=== PATIENT | female | born 1970 | race Caucasian/White ===

== ENCOUNTER 2020-06-07 01:20 | Observation (INO) ==
[2020-06-07] MEDS ORDERED: HYDROmorphone HCL 1 MG/ML DISP.SYRIN IV ONE ×4 (01:48→04:19)
[2020-06-07] MEDS ORDERED: NORMAL SALINE 1,000 ML IV ONE ×2 (01:48→12:37)
[2020-06-07] MEDS ORDERED: ONDANSETRON HCL/PF 2 MG/ML VIAL IV ONE ×4 (01:48→15:18)
--- NOTE | 2020-06-07 01:55 | ERNOTE ---
<Vicente Johnson - Last Filed: 06/07/20 03:40> Abdominal HPI - Narrative Date of Service: 06/07/20 - General Chief Complaint: Abdominal Pain Time Seen by Provider: 06/07/20 01:22 Source: patient Exam Limitations: no limitations - Immun/Allergies/Home Medications Immunizatons: IMMUNIZATION HX Immunizations Up to Date Yes History of Influenza Vaccine No Hx Pneumococcal Vaccination No Allergies/Adverse Reactions: Allergies amoxicillin trihydrate [From Augmentin] Allergy (Severe, Verified 06/07/20 01:25) Diarrhea potassium clavulanate [From Augmentin] Allergy (Severe, Verified 06/07/20 01:25) Diarrhea Sulfa (Sulfonamide Antibiotics) Allergy (Intermediate, Verified 06/07/20 01:25) Hives, tongue swelling chlorhexidine Allergy (Mild, Verified 06/07/20 01:25) Hives erythromycin base [Erythromycin Base] Allergy (Mild, Verified 06/07/20 01:25) Rash Home Medications: HOME MEDICATIONS Citalopram Hydrobromide [Celexa] 40 mg PO DAILY 06/20/13 [Last Taken 09/14/13] Acetaminophen [Tylenol] 1,000 mg PO PRN PRN 12/12/14 [Last Taken Unknown] Digoxin [Lanoxin] 0.125 mg PO DAILY 12/12/14 [Last Taken 12/28/14] Lysine HCl [l-Lysine] 1,000 mg PO DAILY 12/12/14 [Last Taken Unknown] Metoprolol Succinate [Toprol Xl] 12.5 mg PO DAILY 12/12/14 [Last Taken Unknown] Multivitamin [Multi Vitamin Daily] 1 ea PO DAILY 12/12/14 [Last Taken Unknown] Warfarin Sodium [Coumadin] 4 mg PO [id number] 12/12/14 [Last Taken 12/21/14] Zolpidem Tartrate 10 mg PO HS 12/12/14 [Last Taken Unknown] traMADol HCL [Ultram] 50 mg PO TID 12/12/14 [Last Taken Unknown] gabapentin 300 mg capsule 600 mg PO TID cap 09/15/18 [Last Taken Unknown] Melatonin 10 mg PO HS 10/06/18 [Last Taken Unknown] Warfarin Sodium [Coumadin] 2 mg PO MOTH 10/06/18 [Last Taken Unknown] busPIRone HCL [Buspar] 10 mg PO BID 10/06/18 [Last Taken Unknown] rabeprazole 20 mg tablet,delayed release 20 mg PO DAILY 06/19/19 [Last Taken Unknown] - History of Present Illness Narrative: 50-year-old female with out to dinner tonight and upon arrival at home while she was sitting at the table developed right upper quadrant pain and vomiting spreading across her chest and abdomen she came in very excited anxious and rather disagreeable was giving staff a hard time would not sit down on the stretcher for the examination describes the pain was 8 out of 10 and she is also burping she denies any gallbladder symptoms in the past that she does have a history of GERD Date (Duration): 06/07/20 Time (Timing): 01:52 Timing: constant Quality: moderate Activities at Onset: rest Modifying Factors - (Improves): Present: other - Nothing Associated Symptoms: Present: nausea, vomiting, shortness of breath Prior Abdominal Problems: Present: none Review of Systems - Review of Systems Constitutional: Present: no symptoms reported EYE: Present: no symptoms reported ENT: Present: no symptoms reported Respiratory: Present: no symptoms reported Cardiology: Present: no symptoms reported Gastrointestinal/Abdominal: Present: no symptoms reported, nausea, vomiting, abdominal pain Genitourinary: Present: no symptoms reported Musculoskeletal: Present: no symptoms reported Skin: Present: no symptoms reported Neurological: Present: no symptoms reported Endocrine: Present: no symptoms reported Hematologic/Lymphatic: Present: no symptoms reported Psych: Present: anxiety All Other Systems: All systems neg except as marked Medical History (Last Reviewed 06/07/20 @ 01:53 by Vicente Johnson MD) Pulmonary embolism Onset Date: 2007 2000, 2003, 2007. on [employer] Coumadin therapy. Anemia Onset Date: Unknown Carpal tunnel syndrome Onset Date: Unknown Chronic neck pain Onset Date: Unknown Coagulation defect Onset Date: Unknown Depression Onset Date: 01/27/13 GERD (gastroesophageal reflux disease) Onset Date: Unknown Hypothyroidism Onset Date: Unknown Sinus tachycardia Onset Date: Unknown Surgical History: Surgical History (Last Reviewed 06/07/20 @ 01:53 by Vicente Johnson MD) H/O dilation and curettage Onset Date: 07/1998 H/O neck surgery Onset Date: 07/[address] South H/O tubal ligation Onset Date: 03/2008 H/O: hysterectomy Onset Date: 01/2011 History of esophagogastroduodenoscopy (EGD) Onset Date: 09/13/13 Bagan- clotest negative. Mild superficial chronic inflammation. Destruction of fundic polyp History of tonsillectomy Onset Date: 1969 Normal colonoscopy Onset Date: 09/13/13 Normal recheck in 10 years Rectocele Onset Date: 01/2011 Family History: Family History (Last Reviewed 06/07/20 @ 01:24 by Ema Hicks RN) Mother Diabetes Bipolar disorder Clotting disorder Social History: (Last Reviewed 06/07/20 @ 01:25 by Ema Hicks RN) Tobacco: Smoking Status: Never smoker Alcohol: alcohol intake: never Substance Use: substance use type: does not use Physical Exam - Physical Exam General Appearance: Present: wd/wn, alert, moderate distress, severe distress, anxious Head Exam: Present: normal inspection Eye Exam: Normal inspection: bilateral, PERRL: bilateral, EOMI: bilateral Ears, Nose, Throat: Present: normal ENT inspection Neck: Present: normal inspection Respiratory: Present: no respiratory distress Cardiovascular/Chest: Present: regular rate, rhythm Gastrointestinal/Abdominal: Present: soft, tenderness, abnormal bowel sounds, guarding, Monge sign. Absent: nontender, nondistended Progress - Results and Orders Patient's Lab Results:: I have reviewed the patient's lab results. Results and Orders: Laboratory Tests 06/07/20 01:59 WBC 10.7 H RBC 4.76 Hgb 13.8 Hct 43.1 MCV 90.5 MCH 29.0 MCHC 32.0 RDW 13.0 Plt Count 155 Immature Gran % (Auto) 0.30 Immature Gran # (Auto) 0.03 Neutrophils % 65.8 Lymphocytes % 26.5 Laboratory Tests 06/07/20 06/07/20 01:59 01:59 PT 17.5 H INR (Anticoag Therapy) 1.81 H Sodium 140 Plasma Sodium 140 Potassium 3.5 Chloride 102 Carbon Dioxide 28.0 Anion Gap 13.5 BUN 11 Creatinine 0.97 Est GFR (Non-Af Amer) 64 BUN/Creatinine Ratio 11.3 Random Glucose 126 H Calcium 9.4 Calcium Adj for Albumin 9.2 Total Bilirubin 0.4 AST 33 ALT 19 Alkaline Phosphatase 100 Total Protein 7.3 Albumin 3.8 Amylase 57 Lipase 176 Laboratory Tests 06/07/20 02:30 D-Dimer 0.24 - Vital Signs Patient's Vital Signs:: I have reviewed the patient's vital signs. Vital Signs: Vital Signs 06/07/20 01:41 Temperature 36.8 C Pulse Rate 74 Respiratory Rate 16 Blood Pressure 135/81 O2 Sat by Pulse Oximetry 100 - EKG EKG #1 EKG: NSR EKG read: Interp. by ia EKG Comments: EKG shows a sinus rhythm with a heart rate of nonspecific T wave no acute change from 06/28/2015 - X-Ray X-Ray #1 X-Ray: chest Interpretation: Interp. by ia X-ray Comments: Shows no acute changes from 2015 - CT/Ultrasound CT/Ultrasound Narrative: Findings suggestive of early to developing acute cholecystitis there is cholelithiasis present biliary ductal dilatation measuring 9.9 mm gross choledochal cholelithiasis Dr. Carrasco was consulted but will not be in town as of 7:00 this morning to take care of the patient we are trying [facility] for transfer - Progress/Reassessment Chief Complaint: Abdominal Pain Plan - Plan Plan: Patient has acute cholecystitis is trying to transfer the patient to [facility] since there is no surgical facility here at [facility] was unable to handle patient necessity for MRCP called [facility] spoke to who will call us back once we can find a direct admission bed and we will continue transfer Departure Clinical Impression: Choledocholithiasis Pancreatitis Qualifiers: Chronicity: acute Pancreatitis type: unspecified pancreatitis type Acute pancreatitis complication: no infection or necrosis Qualified Code(s): K85.90 - Acute pancreatitis without necrosis or infection, unspecified - Departure Disposition: Short Term Hospital Inpatient Condition: Stable <Vicente Del Castillo - Last Filed: 06/07/20 15:46> Abdominal HPI - Immun/Allergies/Home Medications Immunizatons: IMMUNIZATION HX Immunizations Up to Date Yes History of Influenza Vaccine No Hx Pneumococcal Vaccination No Medical History (Last Reviewed 06/07/20 @ 01:53 by Vicente Johnson MD) Pulmonary embolism Onset Date: 2007 2000, 2003, 2007. on detention Coumadin therapy. Anemia Onset Date: Unknown Carpal tunnel syndrome Onset Date: Unknown Chronic neck pain Onset Date: Unknown Coagulation defect Onset Date: Unknown Depression Onset Date: 01/27/13 GERD (gastroesophageal reflux disease) Onset Date: Unknown Hypothyroidism Onset Date: Unknown Sinus tachycardia Onset Date: Unknown Surgical History: Surgical History (Last Reviewed 06/07/20 @ 01:53 by Vicente Johnson MD) H/O dilation and curettage Onset Date: 07/1998 H/O neck surgery Onset Date: 07/[address] South H/O tubal ligation Onset Date: 03/2008 H/O: hysterectomy Onset Date: 01/2011 History of esophagogastroduodenoscopy (EGD) Onset Date: 09/13/13 Bagan- clotest negative. Mild superficial chronic inflammation. Destruction of fundic polyp History of tonsillectomy Onset Date: 1969 Normal colonoscopy Onset Date: 09/13/13 Normal recheck in 10 years Rectocele Onset Date: 01/2011 Family History: Family History (Last Reviewed 06/07/20 @ 01:24 by Ema Hicks RN) Mother Diabetes Bipolar disorder Clotting disorder Social History: (Last Reviewed 06/07/20 @ 01:25 by Ema Hicks RN) Tobacco: Smoking Status: Never smoker Alcohol: alcohol intake: never Substance Use: substance use type: does not use Progress - Results and Orders Results and Orders: Laboratory Tests 06/07/20 08:58 WBC 9.1 RBC 4.23 Hgb 12.4 L Hct 39.0 MCV 92.2 MCH 29.3 Plt Count 142 L Neutrophils % 71.3 Lymphocytes % 20.6 Neutrophils # 6.5 H Laboratory Tests 06/07/20 08:58 Sodium 139 Plasma Sodium 139 Potassium 4.1 Chloride 104 Carbon Dioxide 28.4 Anion Gap 10.7 BUN 11 Creatinine 0.81 Est GFR (Non-Af Amer) 79 D BUN/Creatinine Ratio 13.6 Random Glucose 108 Calcium 8.4 Calcium Adj for Albumin 8.8 Total Bilirubin 0.4 AST 315 H ALT 244 H Alkaline Phosphatase 111 Total Protein 6.4 Albumin 3.1 L Laboratory Tests 06/07/20 08:55 Amylase 247 H Lipase 2280 H - Vital Signs Vital Signs: Vital Signs 06/07/20 01:41 06/07/20 02:04 06/07/20 02:30 Temperature 36.8 C Pulse Rate 74 95 93 Respiratory Rate 16 16 18 Blood Pressure 135/81 137/72 122/80 O2 Sat by Pulse Oximetry 100 96 93 06/07/20 03:10 06/07/20 03:40 06/07/20 04:09 Temperature Pulse Rate 92 88 86 Respiratory Rate 15 11 L 23 H Blood Pressure 122/70 125/69 129/75 O2 Sat by Pulse Oximetry 94 95 95 06/07/20 05:00 Temperature 36.5 C Pulse Rate 83 Respiratory Rate 12 Blood Pressure 125/69 O2 Sat by Pulse Oximetry 94 - Progress/Reassessment Progress:: Improved - Transfer of Care Expected Disposition: Admit Additional Notes: Patient discussed with Dr. Bañuelos. He was initially reluctant to accept the patient in admission. He did request an MRCP prior to excepting the patient. I explained to him we do not do MRCP is here in the ER, but felt with her labs trending down that concern for the choledocholithiasis was minimal at this time. There is no general surgery support here so I do understand his reluctance but Dr. Bañuelos was agreeable to admit the patient and would consider further evaluation with an MRCP if he felt necessary. Plan - Plan Plan: Discussed with the patient that [facility] is unable to accept the patient in transfer at this time. Issues of possible interventions with the necessary ERCP were discussed with the patient which limits what centers might be willing to accept the patient in transfer. Explained to her 1 of the options might be to repeat labs to see how they are trending and see if this is still an emergent situation or if this is something that could be delayed as far as definitive treatment. Patient is willing to at least repeat labs at this time and we will reassess his situation after we get the repeat labs. Patient does state that that the Toradol seems to be helping her pain more than the Dilaudid. Patient with increased LFTs which would be concerning then for either blockage of the hepatic duct versus an acute hepatitis. Bilirubin remains normal. There is improvement of the white count. Question remains whether this is GB issue vs hepatitis vs stone in duct, though normal bilirubin would go against this cause. Will check an amylase and lipase for completeness. If these are normal consider discharging patient with outpatient follow-up. Patient's amylase and lipase are elevated so there would be concern for some possible obstructive process. Because [facility] has no beds available will contact [facility] for possible transfer. Multiple facilities were contacted in regards to transfer of the patient for possible ERCP. In the meantime a repeat of her lipase and LFTs did show decline in these numbers. Because of this I feel that any stone that she might of had blocking her common bile duct is most likely past as her pain symptoms have also improved even though they still are present. Discussed with the patient and her options of admission here for continued pain control and IV fluids versus discharge with patient managing at home and possibly following up outpatient or returning to the ER should her symptoms worsen up in [place] which is where they are from. Patient and were not happy with these options and question as to why the plan of care had changed over the course of last 12 hours. An hour and 15 minutes was spent [id number] with the patient and her explaining initial findings, intermediate findings and present findings on her labs. Patient kept focusing on her gallbladder and need for surgery for this, while I tried to explain to her that her gallbladder was not the immediate issue it was concern for choledocholithiasis that has now passed. Labs were presented to the patient and her on the computer screen with the detailed descriptions of what that meant and why I felt that patient mainly now has a pancreatitis causing her pain that continued IV fluids and n.p.o. and pain control here in our hospital would be appropriate. Again after an hour and 15 minutes of continued discussion and at this point with the help of patient's patient was willing to come into the hospital for further treatment. I do not believe she is still fully understands why the initial plan no longer needed to be initiated though I tried my best to explain it in 4 different ways.
[2020-06-07 02:05] LABS: Hematocrit 43.1 % (37.0-47.0); Hemoglobin 13.8 gm/dL (12.5-16.0); Mean Cell Volume 90.5 fl (78-100); Mean Platelet Volume 8.6 fl (8-12.5); Neutrophil # 7.1 K/mm3 (1.3-6.0); Neutrophil % 65.8 % (42-75.0); Platelet Count 155 K/mm3 (150-450); Red Blood Count 4.76 M/mm3 (4.2-5.4); White Blood Count 10.7 K/mm3 (4.0-10.5)
[2020-06-07 02:16] LABS: BUN/Creatinine Ratio 11.3 (9.0-21.6); Prothrombin Time (Patient) 17.5 Seconds (9.1-10.7)
[2020-06-07 02:17] LABS: Albumin * 3.8 gm/dl (3.4-5.0); Anion Gap 13.5 mmol/L (6.8-13.8); Bilirubin, Total 0.4 mg/dL (0.0-1.1); Ca. Corrected For Albumin 9.2 mg/dL (8.4-10.2); Calcium * 9.4 mg/dL (7.9-10.9); Potassium 3.5 mmol/L (3.4-4.6); Total Protein 7.3 gm/dL (6.2-8.2)
[2020-06-07 02:23] LABS: INR 1.81 INR (0.92-1.08)
[2020-06-07] MEDS ORDERED: PANTOPRAZOLE SODIUM 40 MG/100 ML PIGGYBACK IV ONE (02:47)
[2020-06-07] MEDS ORDERED: LEVOFLOXACIN IN DEXTROSE 5 % 750 MG/150 ML BAG IV ONE (04:05)
[2020-06-07] MEDS ORDERED: metroNIDAZOLE/SODIUM CHLORIDE 500 MG/100 ML BAG IV ONE (04:06)
[2020-06-07] MEDS ORDERED: HYDROmorphone HCL 2 MG/ML VIAL IV ONE (04:14)
[2020-06-07] MEDS ORDERED: MAG HYDROX/ALUMINUM HYD/SIMETH 30 ML UDC PO ONE (04:52)
[2020-06-07] MEDS ORDERED: SUCRALFATE 1 G/10 ML UDC PO ONE (04:52)
[2020-06-07] MEDS ORDERED: LIDOCAINE HCL 15 ML UDC MM ONE (04:52)
[2020-06-07] MEDS ORDERED: KETOROLAC TROMETHAMINE 30 MG/ML VIAL IV ONE ×2 (05:47→11:10)
[2020-06-07] MEDS ORDERED: ONDANSETRON HCL/PF 2 MG/ML VIAL ONE (08:21)
[2020-06-07] MEDS: DEXTROSE 5%-0.5 NORMAL SALINE 1,000 ML IV PRN ×2 (08:33→16:10)
[2020-06-07 09:04] LABS: Hemoglobin 12.4 gm/dL (12.5-16.0); Mean Cell Volume 92.2 fl (78-100); Mean Corpuscular Hemoglobin 29.3 pg (27-31); Mean Corpuscular Hgb Conc 31.8 g/dl (32-36); Mean Platelet Volume 8.6 fl (8-12.5); Neutrophil # 6.5 K/mm3 (1.3-6.0); Neutrophil % 71.3 % (42-75.0); Platelet Count 142 K/mm3 (150-450); Red Blood Count 4.23 M/mm3 (4.2-5.4); Red Cell Distribution Width 13.2 % (11.5-14.0); White Blood Count 9.1 K/mm3 (4.0-10.5)
[2020-06-07 09:19] LABS: Albumin * 3.1 gm/dl (3.4-5.0); Anion Gap 10.7 mmol/L (6.8-13.8); BUN/Creatinine Ratio 13.6 (9.0-21.6); Bilirubin, Total 0.4 mg/dL (0.0-1.1); Ca. Corrected For Albumin 8.8 mg/dL (8.4-10.2); Calcium * 8.4 mg/dL (7.9-10.9); Carbon Dioxide 28.4 mmol/L (24-32.6); Potassium 4.1 mmol/L (3.4-4.6); Total Protein 6.4 gm/dL (6.2-8.2)
[2020-06-07 10:32] LABS: Amylase * 247 U/L (25-115)
[2020-06-07 10:45] LABS: Lipase 2280 U/L (73-393)
[2020-06-07 13:54] LABS: Albumin * 3.1 gm/dl (3.4-5.0); Anion Gap 10.8 mmol/L (6.8-13.8); Bilirubin, Total 0.5 mg/dL (0.0-1.1); Ca. Corrected For Albumin 8.7 mg/dL (8.4-10.2); Calcium * 8.3 mg/dL (7.9-10.9); Carbon Dioxide 27.7 mmol/L (24-32.6); Potassium 3.5 mmol/L (3.4-4.6); Total Protein 6.2 gm/dL (6.2-8.2)
[2020-06-07] MEDS ORDERED: DEXTROSE 5%-0.5 NORMAL SALINE 1,000 ML IV PRN (15:08)
[2020-06-07] MEDS ORDERED: WARFARIN SODIUM 4 MG TABLET PO SCH (17:00)
--- NOTE | 2020-06-07 17:15 | HP ---
Chief Complaint - Chief Complaint Date of Service: 06/07/20 Time of Service: 17:14 Chief Complaint: Right upper quadrant pain History of Present Illness: Darline Osborne is a 50-year-old white female with past medical history significant for recurrent pulmonary embolisms on chronic Coumadin therapy, chronic neck pain status post C5-C6 fusion, gastroesophageal reflux disease, depression, hypothyroidism, anemia, POTS who went to our emergency room early this morning because of right upper quadrant abdominal pain. She went out to dinner that night and while she was sitting at the table she started having right abdominal quadrant pain associated with nausea and vomiting. She rated her pain as 8/10. She denies any fever or chills although the says that she was warm last night. She has had no history of gallbladder disease in the past. In the emergency room at around 1:30 in the morning her laboratory exam showed a CMP which was essentially within normal limits, a CBC which showed a WBC count of 10.4 with hemoglobin of 13.8. Her chest x-ray showed no acute cardiopulmonary findings. Her EKG showed normal sinus rhythm with nonspecific ST-T wave changes. Her ultrasound of her gallbladder showed multiple gallstones with no thickening of the gallbladder wall however patient had positive ultrasound Monge sign, consider early acute cholecystitis. It also showed dilated common bile duct with no choledocholithiasis consider papillary stenosis. Our surgeon is on vacation today. The patient was kept n.p.o., started on IV fluids, and given IV antibiotics. Our emergency room department has tried calling [facility], [facility] and they were not able to accept her. ED physician talked with the patient and the since her lipase and AST ALT are tren ding down, it is possible that she may have passed her stone. Since there is no availability in the other hospitals they agreed to be admitted here for pain control and monitoring of her clinical and laboratory status. Medical History (Last Reviewed 06/07/20 @ 15:54 by Wen Coates RN) Pulmonary embolism Onset Date: 2007 2000, 2003, 2007. on lobsterman Coumadin therapy. Anemia Onset Date: Unknown Carpal tunnel syndrome Onset Date: Unknown Chronic neck pain Onset Date: Unknown Coagulation defect Onset Date: Unknown Depression Onset Date: 01/27/13 GERD (gastroesophageal reflux disease) Onset Date: Unknown Hypothyroidism Onset Date: Unknown Sinus tachycardia Onset Date: Unknown Surgical History: Surgical History (Last Reviewed 06/07/20 @ 15:54 by Wen Coates RN) H/O dilation and curettage Onset Date: 07/1998 H/O neck surgery Onset Date: 07/[address] [place] H/O tubal ligation Onset Date: 03/2008 H/O: hysterectomy Onset Date: 01/2011 History of esophagogastroduodenoscopy (EGD) Onset Date: 09/13/13 Bagan- clotest negative. Mild superficial chronic inflammation. Destruction of fundic polyp History of tonsillectomy Onset Date: 1969 Normal colonoscopy Onset Date: 09/13/13 Normal recheck in 10 years Rectocele Onset Date: 01/2011 Family History: Family History (Last Reviewed 06/07/20 @ 15:54 by Wen Coates RN) Mother Diabetes Bipolar disorder Clotting disorder Social History: (Last Reviewed 06/07/20 @ 15:54 by Wen Coates RN) Tobacco: Smoking Status: Never smoker Alcohol: alcohol intake: never Substance Use: substance use type: does not use Review Of Systems (GEN) - Review of Systems Generalized/Overall Review: Absent: Chills, Fever - Questionable EENTM: Absent: Blurred Vision Respiratory: Absent: Cough, Shortness of Breath, Orthopnea Cardiac: Absent: Chest Pain, Edema, Palpitations Abdominal: Present: Nausea, Vomiting, Abdominal Pain. Absent: Constipation, Diarrhea Genitourinary: Absent: Urgency, Frequency Musculoskeletal: Present: Joint Pain, Neck Pain Neurological: Absent: Headache Skin: Absent: Lesions, Rash Endocrine: Absent: Intolerance to Cold, Intolerance to Heat Misc: All systems neg except as marked Immunizations: IMMUNIZATION HX Immunizations Up to Date Yes History of Influenza Vaccine No Hx Pneumococcal Vaccination No Allergies/Adverse Reactions: Allergies Allergy/AdvReac Type Severity Reaction Status Date / Time amoxicillin trihydrate Allergy Severe Diarrhea Verified 06/07/20 01:25 [From Augmentin] potassium clavulanate Allergy Severe Diarrhea Verified 06/07/20 01:25 [From Augmentin] Sulfa (Sulfonamide Allergy Intermediate Hives, Verified 06/07/20 01:25 Antibiotics) tongue swelling chlorhexidine Allergy Mild Hives Verified 06/07/20 01:25 erythromycin base Allergy Mild Rash Verified 06/07/20 01:25 [Erythromycin Base] Home Medications: HOME MEDICATIONS Citalopram Hydrobromide [Celexa] 40 mg PO DAILY 06/20/13 [Last Taken 09/14/13] Acetaminophen [Tylenol] 1,000 mg PO PRN PRN 12/12/14 [Last Taken Unknown] Digoxin [Lanoxin] 0.125 mg PO DAILY 12/12/14 [Last Taken 12/28/14] Lysine HCl [l-Lysine] 1,000 mg PO DAILY 12/12/14 [Last Taken Unknown] Metoprolol Succinate [Toprol Xl] 12.5 mg PO DAILY 12/12/14 [Last Taken Unknown] Multivitamin [Multi Vitamin Daily] 1 ea PO DAILY 12/12/14 [Last Taken Unknown] Warfarin Sodium [Coumadin] 4 mg PO SUTUWEFRSA 12/12/14 [Last Taken 12/21/14] Zolpidem Tartrate 10 mg PO HS 12/12/14 [Last Taken Unknown] traMADol HCL [Ultram] 50 mg PO TID 12/12/14 [Last Taken Unknown] gabapentin 300 mg capsule 600 mg PO TID cap 09/15/18 [Last Taken Unknown] Melatonin 10 mg PO HS 10/06/18 [Last Taken Unknown] Warfarin Sodium [Coumadin] 2 mg PO MOTH 10/06/18 [Last Taken Unknown] busPIRone HCL [Buspar] 10 mg PO BID 10/06/18 [Last Taken Unknown] rabeprazole 20 mg tablet,delayed release 20 mg PO DAILY 06/19/19 [Last Taken Unknown] Exam - Exam Vital Signs: Vital Signs - Last Taken Temp 37.2 C 06/07/20 15:37 Pulse 69 06/07/20 15:37 Resp 18 06/07/20 15:37 BP 128/76 06/07/20 15:37 Pulse Ox 97 06/07/20 15:37 Constitutional: Present: Alert, Oriented x3, Cooperative ENT Exam: Present: hearing grossly normal Eye Exam: bilateral eye: normal inspection, PERRL, EOMI Neck: Present: supple. Absent: lymphadenopathy (R), lymphadenopathy (L) Respiratory: Present: decreased breath sounds, No rales, No wheezing Cardiovascular/Chest: Present: regular rate, rhythm, no JVD, no murmur Abdomen: Present: Normal bowel sounds, soft, no rebound tenderness, tender - Right upper quadrant, positive Monge sign Extremity: Present: no pedal edema, no calf tenderness Diagnostic Studies: Abnormal Lab Results 06/07/20 06/07/20 06/07/20 Range/Units 01:59 01:59 01:59 WBC 10.7 H (4.0-10.5) K/mm3 Hgb (12.5-16.0) gm/dL MCHC (32-36) g/dl Plt Count (150-450) K/mm3 Neutrophils # 7.1 H (1.3-6.0) K/mm3 PT 17.5 H (9.1-10.7) Seconds INR (Anticoag Therapy) 1.81 H (0.92-1.08) INR Random Glucose 126 H (70-110) mg/dL AST (0-48) U/L ALT (19-67) U/L Albumin (3.4-5.0) gm/dl Amylase (25-115) U/L Lipase (73-393) U/L 06/07/20 06/07/20 06/07/20 Range/Units 08:55 08:58 08:58 WBC (4.0-10.5) K/mm3 Hgb 12.4 L (12.5-16.0) gm/dL MCHC 31.8 L (32-36) g/dl Plt Count 142 L (150-450) K/mm3 Neutrophils # 6.5 H (1.3-6.0) K/mm3 PT (9.1-10.7) Seconds INR (Anticoag Therapy) (0.92-1.08) INR Random Glucose (70-110) mg/dL AST 315 H (0-48) U/L ALT 244 H (19-67) U/L Albumin 3.1 L (3.4-5.0) gm/dl Amylase 247 H (25-115) U/L Lipase 2280 H (73-393) U/L 06/07/20 Range/Units 13:37 WBC (4.0-10.5) K/mm3 Hgb (12.5-16.0) gm/dL MCHC (32-36) g/dl Plt Count (150-450) K/mm3 Neutrophils # (1.3-6.0) K/mm3 PT (9.1-10.7) Seconds INR (Anticoag Therapy) (0.92-1.08) INR Random Glucose (70-110) mg/dL AST 209 H (0-48) U/L ALT 213 H (19-67) U/L Albumin 3.1 L (3.4-5.0) gm/dl Amylase (25-115) U/L Lipase 1085 H (73-393) U/L Laboratory Results WBC 9.1 K/mm3 (4.0-10.5) 06/07/20 08:58 RBC 4.23 M/mm3 (4.2-5.4) 06/07/20 08:58 Hgb 12.4 gm/dL (12.5-16.0) L 06/07/20 08:58 Hct 39.0 % (37.0-47.0) 06/07/20 08:58 MCV 92.2 fl (78-100) 06/07/20 08:58 MCH 29.3 pg (27-31) 06/07/20 08:58 MCHC 31.8 g/dl (32-36) L 06/07/20 08:58 RDW 13.2 % (11.5-14.0) 06/07/20 08:58 Plt Count 142 K/mm3 (150-450) L 06/07/20 08:58 MPV 8.6 fl (8-12.5) 06/07/20 08:58 Immature Gran % (Auto) 0.30 % (0.001-0.429) 06/07/20 08:58 Immature Gran # (Auto) 0.03 K/mm3 (0.000-0.0310) 06/07/20 08:58 Neutrophils % 71.3 % (42-75.0) 06/07/20 08:58 Lymphocytes % 20.6 % (20-51) 06/07/20 08:58 Monocytes % 7.3 % (0.0-9) 06/07/20 08:58 Eosinophils % 0.1 % (0.0-3.0) 06/07/20 08:58 Basophils % 0.4 % (0.0-1.0) 06/07/20 08:58 Nucleated RBC % 0.0 k/mm3 (0-1) 06/07/20 08:58 Neutrophils # 6.5 K/mm3 (1.3-6.0) H 06/07/20 08:58 Lymphocytes # 1.87 k/mm3 (1.5-3.5) 06/07/20 08:58 Monocytes # 0.7 k/mm3 (0.0-1.0) 06/07/20 08:58 Eosinophils # 0.0 k/mm3 (0.0-0.7) 06/07/20 08:58 Absolute Basophils 0.0 k/mm3 (0.0-0.1) 06/07/20 08:58 PT 17.5 Seconds (9.1-10.7) H 06/07/20 01:59 INR (Anticoag Therapy) 1.81 INR (0.92-1.08) H 06/07/20 01:59 D-Dimer 0.24 ug/mL (0.19-0.49) 06/07/20 02:30 Sodium 139 mmol/L (132-142) 06/07/20 13:37 Plasma Sodium 139 mmol/L (130-142) 06/07/20 13:37 Potassium 3.5 mmol/L (3.4-4.6) 06/07/20 13:37 Chloride 104 mmol/L (97-106) 06/07/20 13:37 Carbon Dioxide 27.7 mmol/L (24-32.6) 06/07/20 13:37 Anion Gap 10.8 mmol/L (6.8-13.8) 06/07/20 13:37 BUN 12 mg/dL (3-23) 06/07/20 13:37 Creatinine 0.92 mg/dL (0.4-1.4) 06/07/20 13:37 Est GFR (Non-Af Amer) 68 mL/min (60-130) 06/07/20 13:37 BUN/Creatinine Ratio 13.0 (9.0-21.6) 06/07/20 13:37 Random Glucose 108 mg/dL (70-110) 06/07/20 13:37 Calcium 8.3 mg/dL (7.9-10.9) 06/07/20 13:37 Calcium Adj for Albumin 8.7 mg/dL (8.4-10.2) 06/07/20 13:37 Total Bilirubin 0.5 mg/dL (0.0-1.1) 10/09/20 13:37 AST 209 U/L (0-48) H 06/07/20 13:37 ALT 213 U/L (19-67) H 06/07/20 13:37 Alkaline Phosphatase 121 U/L (50-170) 06/07/20 13:37 Total Protein 6.2 gm/dL (6.2-8.2) 06/07/20 13:37 Albumin 3.1 gm/dl (3.4-5.0) L 06/07/20 13:37 Amylase 247 U/L (25-115) H 06/07/20 08:55 Lipase 1085 U/L (73-393) H 06/07/20 13:37 Assessment/Plan - Narrative Narrative: Darline is a 50-year-old white female who was admitted for right upper quadrant pain due to probable early acute cholecystitis secondary to gallbladder stone with concomitant acute pancreatitis. Her white blood cell count initially was slightly elevated at 10.7 and a follow-up 1 was normal. Her liver function test was initially normal and 7 to 8 hours later was found to have elevated AST ALT and amylase lipase. Multiple efforts were done to transfer patient however unsuccessful. Since patient ultrasound shows no evidence of gallbladder perforation/ emphysema, gallbladder gangrene/necrosis the patient was then admitted for pain control and management of her acute pancreatitis. She will be scheduled for an MRCP in the morning and pending results will likely need to be transferred if positive findings. The patient is a good surgical candidate and ideally should have early laparoscopic cholecystectomy with same hospitalization over elective or delayed cholecystectomy. If she develops any clinical deterioration she will need emergency cholecystectomy. In any case she will still need to be transferred as we do not have surgery available at this time. - Assessment/Plan (1) Pancreatitis Problem: Acute Qualifiers: Chronicity: acute Pancreatitis type: unspecified pancreatitis type Acute pancreatitis complication: no infection or necrosis Qualified Code(s): K85.90 - Acute pancreatitis without necrosis or infection, unspecified (2) Acute calculous cholecystitis Problem: Acute (3) Chronic neck pain Problem: Acute (4) History of pulmonary embolism Problem: Acute (5) GERD (gastroesophageal reflux disease) Problem: Acute (6) POTS (postural orthostatic tachycardia syndrome) Problem: Acute
[2020-06-07] MEDS: ONDANSETRON HCL/PF 2 MG/ML VIAL IV PRN ×2 (17:18→22:17)
[2020-06-07] MEDS: HYDROmorphone HCL 2 MG/ML VIAL IV PRN ×2 (17:20→22:25)
[2020-06-07] MEDS ORDERED: FLU VACC QS2020-21(6MOS UP)/PF 60 MCG/0.5 ML SYRINGE IM ONE (18:00)
[2020-06-07] MEDS: GABAPENTIN 600 MG TABLET PO SCH ×3 (18:11→20:38)
[2020-06-07] MEDS ORDERED: ZOLPIDEM TARTRATE 10 MG TABLET PO SCH (21:00)
[2020-06-07] MEDS ORDERED: busPIRone HCL 5 MG TABLET PO SCH (21:00)
[2020-06-07] MEDS ORDERED: GABAPENTIN 300 MG CAPSULE PO SCH (21:00)
[2020-06-07] MEDS ORDERED: FLUTICASONE PROPIONATE 120 SPRAY INHALER NS SCH (21:00)
[2020-06-07] MEDS ORDERED: MELATONIN 3,000 MCG TABLET PO SCH (21:00)
[2020-06-07] MEDS: metroNIDAZOLE/SODIUM CHLORIDE 500 MG/100 ML BAG IV SCH (21:01)
[2020-06-07] MEDS ORDERED: METOPROLOL SUCCINATE 25 MG TABLET.SA PO SCH (21:20)
[2020-06-07] MEDS: tiZANidine HCL 4 MG TABLET PO SCH (21:24)
[2020-06-08] MEDS: metroNIDAZOLE/SODIUM CHLORIDE 500 MG/100 ML BAG IV SCH ×2 (03:07→12:25)
[2020-06-08] MEDS: HYDROmorphone HCL 2 MG/ML VIAL IV PRN (03:12)
[2020-06-08] MEDS: ONDANSETRON HCL/PF 2 MG/ML VIAL IV PRN ×3 (03:12→15:55)
[2020-06-08] MEDS: DEXTROSE 5%-0.5 NORMAL SALINE 1,000 ML IV PRN ×2 (05:24→16:35)
[2020-06-08 06:50] LABS: Hematocrit 36.3 % (37.0-47.0); Hemoglobin 11.2 gm/dL (12.5-16.0); Mean Cell Volume 95.5 fl (78-100); Mean Corpuscular Hemoglobin 29.5 pg (27-31); Mean Corpuscular Hgb Conc 30.9 g/dl (32-36); Mean Platelet Volume 8.8 fl (8-12.5); Neutrophil # 2.6 K/mm3 (1.3-6.0); Neutrophil % 47.3 % (42-75.0); Platelet Count 113 K/mm3 (150-450); Red Cell Distribution Width 13.5 % (11.5-14.0); White Blood Count 5.4 K/mm3 (4.0-10.5)
[2020-06-08] MEDS ORDERED: LEVOTHYROXINE SODIUM 75 MCG TABLET PO SCH ×2 (07:00→07:30)
[2020-06-08 07:05] LABS: Albumin * 2.7 gm/dl (3.4-5.0); Anion Gap 7.6 mmol/L (6.8-13.8); BUN/Creatinine Ratio 7.3 (9.0-21.6); Bilirubin, Total 0.3 mg/dL (0.0-1.1); Ca. Corrected For Albumin 9.1 mg/dL (8.4-10.2); Calcium * 8.4 mg/dL (7.9-10.9); Potassium 3.6 mmol/L (3.4-4.6); Total Protein 5.5 gm/dL (6.2-8.2)
[2020-06-08] MEDS: HYDROmorphone HCL 1 MG/ML DISP.SYRIN IV PRN ×2 (07:29→15:53)
[2020-06-08 08:01] LABS: Prothrombin Time (Patient) 17.2 Seconds (9.1-10.7)
[2020-06-08 08:03] LABS: INR 1.78 INR (0.92-1.08)
[2020-06-08] MEDS ORDERED: CITALOPRAM HYDROBROMIDE 20 MG TABLET PO SCH (09:00)
[2020-06-08] MEDS ORDERED: PANTOPRAZOLE SODIUM 40 MG in NORMAL SALINE 100 ML IV SCH (09:00)
[2020-06-08] MEDS ORDERED: DIGOXIN 0.125 MG TABLET PO SCH (09:00)
[2020-06-08 09:29] LABS: Amylase * 52 U/L (25-115); Lipase 121 U/L (73-393)
[2020-06-08] MEDS: tiZANidine HCL 4 MG TABLET PO SCH ×3 (09:41→16:38)
[2020-06-08] MEDS: busPIRone HCL 5 MG TABLET PO SCH ×2 (09:43→12:30)
[2020-06-08] MEDS: GABAPENTIN 600 MG TABLET PO SCH ×2 (09:45→16:39)
[2020-06-08] MEDS ORDERED: ACETAMINOPHEN 500 MG TABLET PO ONE (09:56)
[2020-06-08] MEDS ORDERED: PHYTONADIONE (VIT K1) 10 MG/ML AMPUL SC ONE (13:45)
--- NOTE | 2020-06-08 13:58 | DS ---
Transfer Discharge Summary - Diagnosis(s)/Problems (1) Acute calculous cholecystitis Problem: Acute (2) Pancreatitis Problem: Resolved (3) Chronic neck pain Problem: Acute (4) History of pulmonary embolism Problem: Acute (5) GERD (gastroesophageal reflux disease) Problem: Acute (6) POTS (postural orthostatic tachycardia syndrome) Problem: Acute - Course Description of Stay: Darline Osborne is a 50-year-old white female with past medical history signi ficant for recurrent pulmonary embolisms on chronic Coumadin therapy, chronic neck pain status post C5-C6 fusion, gastroesophageal reflux disease, depression, hypothyroidism, anemia, POTS who went to our emergency room early this morning because of right upper quadrant abdominal pain. She went out to dinner the night before her admission and while she was sitting at the table she started having right abdominal quadrant pain associated with nausea and vomiting. She rated her pain as 8/10. She denied any fever or chills although the said that she was warm the night before her admission.. She has had no history of gallbladder disease in the past. In the emergency room at around 1:30 in the morning her laboratory exam showed a CMP which was essentially within normal limits, a CBC which showed a WBC count of 10.7 with hemoglobin of 13.8. Her chest x-ray showed no acute cardiopulmonary findings. Her EKG showed normal sinus rhythm with nonspecific ST-T wave changes. Her ultrasound of her gallbladder showed multiple gallstones with no thickening of the gallbladder wall however patient had positive ultrasound Monge sign, consider early acute cholecystitis. It also showed dilated common bile duct with no choledocholithiasis consider papillary stenosis. We did not have availabilty of surgery this week. The patient was kept n.p.o., started on IV fluids, and given IV antibiotics x 1 . Our emergency room department tried calling [facility], [facility] and they were not able to accept her for possible ERCP. ED physician talked with the patient and the since her lipase and AST ALT are trending down, it is possible that she may have passed her stone. Since there iwas no availability in the other hospitals they agreed to be admitted here for pain control and monitoring of her clinical and laboratory status. In the floor her pain is getting more tolerable and her AST/ALT keeps on trending down. Her amylase/lipase is back to normal. I kept her on IV antibiotics. Her MRCP this morning showed multiple gallstones with cholecystitis with no, prominence of the common bile ducts with no choledocholithiasis. I talked to Dr. Rajput, surgery weatherization coordinator in [facility], and he is accepting the patient and he will likely do possible laparacopic cholecystectomy tomorrow. Her INR today is 1.7 and will give her Vit K sq 10 mg x 1 and hold her warfarin. Procedures Performed: none - Results and Findings Results and Findings: Laboratory Results - last 24 hr 06/07/20 06/07/20 06/08/20 13:37 18:10 06:00 WBC RBC Hgb Hct MCV MCH MCHC RDW Plt Count MPV Immature Gran % (Auto) Immature Gran # (Auto) Neutrophils % Lymphocytes % Monocytes % Eosinophils % Basophils % Nucleated RBC % Neutrophils # Lymphocytes # Monocytes # Eosinophils # Absolute Basophils PT 17.2 H INR (Anticoag Therapy) 1.78 H Sodium 139 Plasma Sodium 139 Potassium 3.5 Chloride 104 Carbon Dioxide 27.7 Anion Gap 10.8 BUN 12 Creatinine 0.92 Est GFR (Non-Af Amer) 68 BUN/Creatinine Ratio 13.0 Random Glucose 108 Calcium 8.3 Calcium Adj for Albumin 8.7 Total Bilirubin 0.5 AST 209 H ALT 213 H Alkaline Phosphatase 121 Total Protein 6.2 Albumin 3.1 L Amylase Lipase 1085 H Digoxin 0.8 D 06/08/20 06/08/20 06/08/20 06:30 06:45 06:45 WBC 5.4 D RBC 3.80 L Hgb 11.2 L Hct 36.3 L MCV 95.5 MCH 29.5 MCHC 30.9 L RDW 13.5 Plt Count 113 L MPV 8.8 Immature Gran % (Auto) 0.20 Immature Gran # (Auto) 0.01 Neutrophils % 47.3 Lymphocytes % 40.4 Monocytes % 8.0 Eosinophils % 3.5 H Basophils % 0.6 Nucleated RBC % 0.0 Neutrophils # 2.6 Lymphocytes # 2.18 Monocytes # 0.4 Eosinophils # 0.2 Absolute Basophils 0.0 PT INR (Anticoag Therapy) Sodium 140 Plasma Sodium 140 Potassium 3.6 Chloride 108 H Carbon Dioxide 28.0 Anion Gap 7.6 BUN 7 Creatinine 0.96 Est GFR (Non-Af Amer) 65 BUN/Creatinine Ratio 7.3 L Random Glucose 114 H Calcium 8.4 Calcium Adj for Albumin 9.1 Total Bilirubin 0.3 AST 79 H ALT 132 H Alkaline Phosphatase 100 Total Protein 5.5 L Albumin 2.7 L Amylase 52 Lipase 121 Digoxin - Medications Medications: Active Medications Buspirone HCl (Buspar) 10 mg PO BID@0900,1300 [facility] Stop: 07/07/20 21:01 Last Admin: 06/08/20 12:30 Dose: 10 mg Documented by: Citalopram Hydrobromide (Celexa) 40 mg PO DAILY [facility] Stop: 07/08/20 09:01 Last Admin: 06/08/20 09:42 Dose: 40 mg Documented by: Digoxin (Lanoxin) 0.125 mg PO DAILY [facility] Stop: 07/08/20 09:01 Last Admin: 06/08/20 09:45 Dose: 0.125 mg Documented by: Fluticasone Propionate (Flonase) 1 spray NS [facility] Stop: 07/07/20 21:01 Last Admin: 06/07/20 21:01 Dose: 1 spray Documented by: Gabapentin (Neurontin) 900 mg PO [facility] Stop: 07/07/20 21:01 Last Admin: 06/07/20 21:00 Dose: 900 mg Documented by: Gabapentin (Neurontin) 600 mg PO BID@0900,1600 [facility] Stop: 07/08/20 09:01 Last Admin: 06/08/20 09:45 Dose: 600 mg Documented by: Hydromorphone HCl (Dilaudid) 1 mg IV Q2H PRN PRN Reason: Severe Pain (pain scale 7-10) Stop: 07/07/20 15:16 Last Admin: 06/08/20 07:29 Dose: 1 mg Documented by: Dextrose/Sodium Chloride (Dextrose 5%-0.45%Ns) 1,000 mls @ 125 mls/hr IV .Q8H PRN PRN Reason: HYDRATION Stop: 07/07/20 08:24 Last Admin: 06/08/20 05:24 Dose: 125 mls/hr Documented by: Metronidazole (Flagyl) 500 mg in 100 mls @ 100 mls/hr IV Q8H [facility]; Protocol Stop: 07/07/20 20:01 Last Admin: 06/08/20 12:25 Dose: 100 mls/hr Documented by: Pantoprazole Sodium 40 mg/ (Sodium Chloride) 100 mls @ 400 mls/hr IV Q24H [facility] Stop: 07/08/20 09:01 Last Infusion: 06/08/20 10:31 Dose: Infused Documented by: Ceftriaxone Sodium 1,000 mg/ (Dextrose/Water) 100 mls @ 200 mls/hr IV Q24H [facility]; Protocol Stop: 07/07/20 21:01 Last Infusion: 06/07/20 22:56 Dose: Infused Documented by: Levothyroxine Sodium (Synthroid) 75 mcg PO DAILY@0700 [facility] Stop: 07/08/20 07:31 Last Admin: 06/08/20 09:43 Dose: 75 mcg Documented by: Melatonin (Melatonin) 9,000 mcg PO [facility] Stop: 07/07/20 21:01 Last Admin: 06/07/20 21:23 Dose: 9,000 mcg Documented by: Metoprolol Succinate (Toprol Xl) 12.5 mg PO [facility] Stop: 07/07/20 21:21 Last Admin: 06/07/20 21:23 Dose: 12.5 mg Documented by: Ondansetron HCl (Zofran) 4 mg IV Q4H PRN PRN Reason: NAUSEA/VOMITING Stop: 07/07/20 15:16 Last Admin: 06/08/20 07:28 Dose: 4 mg Documented by: Tizanidine HCl (Zanaflex) 2 mg PO TID [facility] Stop: 07/07/20 21:15 Last Admin: 06/08/20 12:35 Dose: 2 mg Documented by: Zolpidem Tartrate (Ambien) 10 mg PO [facility] Stop: 07/07/20 21:01 Last Admin: 06/07/20 21:00 Dose: 10 mg Documented by: Discontinued Medications Acetaminophen (Tylenol) 1,000 mg PO ONCE ONE Stop: 06/08/20 09:57 Last Admin: 06/08/20 10:02 Dose: 1,000 mg Documented by: Al Hydrox/Mg Hydrox/Simethicone (Maalox Plus Suspension) 30 ml PO ONCE ONE Stop: 06/07/20 04:53 Last Admin: 06/07/20 05:00 Dose: 30 ml Documented by: Buspirone HCl (Buspar) 10 mg PO BID [facility] Stop: 07/07/20 21:01 Last Admin: 06/07/20 21:01 Dose: Not Given Documented by: Gabapentin (Neurontin) 600 mg PO TID [facility] Stop: 07/07/20 09:01 Last Admin: 06/07/20 20:38 Dose: Not Given Documented by: Hydromorphone HCl (Dilaudid) 1 mg IV ONCE ONE Stop: 06/07/20 01:49 Last Admin: 06/07/20 01:53 Dose: 1 mg Documented by: Hydromorphone HCl (Dilaudid) 1 mg IV ONCE ONE Stop: 06/07/20 02:16 Last Admin: 06/07/20 02:25 Dose: 1 mg Documented by: Hydromorphone HCl (Dilaudid) 0.5 mg IV ONCE ONE Stop: 06/07/20 03:25 Last Admin: 06/07/20 03:29 Dose: 0.5 mg Documented by: Hydromorphone HCl (Dilaudid) 0.5 mg IV ONCE ONE Stop: 06/07/20 04:15 Last Admin: 06/07/20 04:27 Dose: Not Given Documented by: Hydromorphone HCl (Dilaudid) 0.5 mg IV ONCE ONE Stop: 06/07/20 04:20 Last Admin: 06/07/20 04:26 Dose: 0.5 mg Documented by: Hydromorphone HCl (Dilaudid) 1 mg IV Q2H PRN PRN Reason: Severe Pain (pain scale 7-10) Stop: 07/07/20 15:16 Last Admin: 06/08/20 03:12 Dose: 1 mg Documented by: Sodium Chloride (Sodium Chloride 0.9%) 1,000 mls @ 999 mls/hr IV .Q1H1M ONE Stop: 06/07/20 02:48 Last Infusion: 06/07/20 03:07 Dose: Infused Documented by: Pantoprazole Sodium (Protonix Iv Er Piggyback) 40 mg in 100 mls @ 400 mls/hr IV ONCE ONE Stop: 06/07/20 03:01 Last Infusion: 06/07/20 03:05 Dose: Infused Documented by: Levofloxacin/Dextrose (Levaquin) 750 mg in 150 mls @ 100 mls/hr IV ONCE ONE; Protocol Stop: 06/07/20 05:34 Last Infusion: 06/07/20 08:13 Dose: Infused Documented by: Metronidazole (Flagyl) 500 mg in 100 mls @ 100 mls/hr IV PREOP ONE; Protocol Stop: 06/07/20 05:05 Last Infusion: 06/07/20 06:04 Dose: Infused Documented by: Sodium Chloride (Sodium Chloride 0.9%) 1,000 mls @ 999 mls/hr IV .Q1H1M ONE Stop: 06/07/20 13:37 Last Infusion: 06/07/20 15:19 Dose: Infused Documented by: Ketorolac Tromethamine (Toradol) 30 mg IV ONCE ONE Stop: 06/07/20 05:48 Last Admin: 06/07/20 05:51 Dose: 30 mg Documented by: Ketorolac Tromethamine (Toradol) 30 mg IV ONCE ONE Stop: 06/07/20 11:11 Last Admin: 06/07/20 11:16 Dose: 30 mg Documented by: Levothyroxine Sodium (Synthroid) 75 mcg PO DAILY [facility] Stop: 07/08/20 07:01 Last Admin: 06/08/20 10:39 Dose: Not Given Documented by: Lidocaine HCl (Lidocaine Hcl Viscous 2%) 15 ml MM ONCE ONE Stop: 06/07/20 04:53 Last Admin: 06/07/20 05:00 Dose: 15 ml Documented by: Ondansetron HCl (Zofran) 4 mg IV ONCE ONE Stop: 06/07/20 01:49 Last Admin: 06/07/20 01:53 Dose: 4 mg Documented by: Ondansetron HCl (Zofran) 4 mg IV ONCE ONE Stop: 06/07/20 08:21 Last Admin: 06/07/20 08:22 Dose: 4 mg Documented by: Ondansetron HCl (Zofran) 4 mg IV ONCE ONE Stop: 06/07/20 11:11 Last Admin: 06/07/20 11:14 Dose: 4 mg Documented by: Ondansetron HCl (Zofran) 4 mg IV ONCE ONE Stop: 06/07/20 15:19 Last Admin: 06/07/20 15:21 Dose: 4 mg Documented by: Sucralfate (Carafate Suspension) 1 g PO ONCE ONE Stop: 06/07/20 04:53 Last Admin: 06/07/20 05:00 Dose: 1 g Documented by: Warfarin Sodium (Coumadin) 4 mg PO SUTUWEFRSA [facility] Stop: 07/07/20 17:01 Last Admin: 06/07/20 20:58 Dose: 4 mg Documented by: - Disposition Disposition: Home self-care Condition: Stable Discharge Date: 06/08/20 Discharge Time: 14:00
[2020-06-08] MEDS ORDERED: WARFARIN SODIUM 4 MG TABLET PO SCH (17:00)
[2020-06-08 18:24] VITALS: BP 115/69
[2020-06-10] MEDS ORDERED: WARFARIN SODIUM 2 MG TABLET PO SCH (17:00)
[2020-06-11 10:12] LABS: Hepatitis C Antibody NON-REACTIVE (NON-REACTIVE); Hepatitis Panel Confirmation DNR
[2020-06-11 10:38] LABS: Hepatitis B Surface Antigen NON-REACTIVE (NON-REACTIVE)
== END 2020-06-08 19:10 | disposition short-term general hospital (02) ==
LOC: ER 01:20 → MS 01:20
PROVIDERS: ADMIT Internal Medicine; ATTEND Internal Medicine